=== PATIENT | male | born 1955 | race Caucasian/White ===

== ENCOUNTER → 2016-11-18 | Outpatient (CLI) | payer MEDICARE | LOC: RAD 08:50 | PROVIDERS: ATTEND Internal Medicine Cardiovascular Disease | DX: R91.8 Other nonspecific abnormal finding of lung field (principal); J93.83 Other pneumothorax | CPT/HCPCS: 71250 ==

== ENCOUNTER 2017-02-15 05:13 | Emergency (ER) | payer MEDICARE ==
[~2017-02-15] VITALS: Ht 175.3 cm; Wt 64.6 kg
[~2017-02-15 05:13] MED LIST: ESOM20CA PO
--- OUTSIDE RECORDS SUMMARY | 2017-02-15 05:18 | XMS REPORT | Continuity of Care Document ---
Author Author [facility] Address Unknown Phone Unavailable Support Name Relationship Address Phone CESAR DIGGS MD Caregiver [address] [place] [address] TUCKER AYALA Next Of Kin [address] [place] [address] Insurance Providers Payer Name Policy Number Subscriber Name Relationship Medicare A And B [id number] Casey Ayala 17 Self / Same As Patient Advance Directives Directive Response Recorded Date/Time Advanced Directives Unknown 07/11/16 2:06am Problems Active Problems Medical Problem Onset Date Status SVT (supraventricular tachycardia) Unknown Acute Medications Current Home Medications Medication Dose Units Route Directions Days/Qty Instructions Start Date Esomeprazole Magnesium 20 Mg 20 Mg ORAL Daily 07/11/16 Social History Query Response Start Date Stop Date Smoking Status Current every day smoker Hospital Discharge Instructions Current inpatient/outpatient. Discharge instructions are currently unavailable. Plan of Care Prescriptions Functional Status No functional status results. Allergies, Adverse Reactions, Alerts No known allergies. Immunizations No immunization records. Vital Signs Acute Vital Signs Vital Response Date/Time Temperature (Fahrenheit) 98 07/11/2016 7:21am Pulse 109 bpm 07/11/2016 7:21am Respirations 20 07/11/2016 7:21am Results Laboratory Results Test Name Result Units Flags Reference Collection Date/Time Result Date/ Time Comments White Blood Count 11.06 10^3uL H 4.0-11.0 07/11/2016 2:54am 07/11/2016 3 :03am Red Blood Count 4.69 10^6uL 4.50-5.50 07/11/2016 2:54am 07/11/2016 3: 03am Hemoglobin 16.4 g/dL 13.5-17.0 07/11/2016 2:54am 07/11/2016 3:03am Hematocrit 45.10 % 39.00-50.00 07/11/2016 2:54am 07/11/2016 3:03am Mean Corpuscular Volume 96 FL 80-100 07/11/2016 2:54am 07/11/2016 3: 03am Mean Corpuscular Hemoglobin 35.0 PG H 26.0-34.0 07/11/2016 2:54am 2015 3:03am Mean Corpuscular Hemoglobin Concent 36.4 g/dL 31.0-37.0 07/11/2016 2: 54am 07/11/2016 3:03am Red Cell Distribution Width 13.4 % 11.8-15.6 07/11/2016 2:542015 3:03am Platelet Count 174 10^3uL 150-450 07/11/2016 2:5407/11/2016 3:03am Mean Platelet Volume 10.3 FL H 6.0-9.5 07/11/2016 2:5407/11/2016 3: 03am Neutrophils (%) (Auto) 75 % H 51-67 07/11/2016 2:5407/11/2016 3:03am Lymphocytes (%) (Auto) 11 % L 20-46 07/11/2016 2:54am 07/11/2016 3:03am Monocytes (%) (Auto) 11 % 3-11 07/11/2016 2:5407/11/2016 3:03am Eosinophils (%) (Auto) 2 % 0-4 07/11/2016 2:5407/11/2016 3:03am Basophils (%) (Auto) 1 % 0-2 07/11/2016 2:5407/11/2016 3:03am Neutrophils # (Auto) 8.3 X10^3 07/11/2016 2:54am 07/11/2016 3:03am Lymphocytes # (Auto) 1.3 X10^3 07/11/2016 2:54am 07/11/2016 3:03am Monocytes # (Auto) 1.2 X10^3 07/11/2016 2:54am 07/11/2016 3:03am Eosinophils # (Auto) 0.2 10^3uL 07/11/2016 2:54am 07/11/2016 3:03am Basophils # (Auto) 0.1 10^3uL 07/11/2016 2:54am 07/11/2016 3:03am Sodium Level 143 mmol/L 135-150 07/11/2016 2:54am 07/11/2016 3:15am Potassium Level 3.0 mmol/L L 3.5-5.1 07/11/2016 2:54am 07/11/2016 3: 15am Chloride Level 99 mmol/L 98-108 07/11/2016 2:54am 07/11/2016 3:15am Carbon Dioxide Level 29 mmol/L 22-29 07/11/2016 2:54am 07/11/2016 3: 15am Anion Gap 17.1 MEQ/L H 3-15 07/11/2016 2:54am 07/11/2016 3:15am Blood Urea Nitrogen 3 mg/dL L 7-18 07/11/2016 2:54am 07/11/2016 3:15am Creatinine 0.65 mg/dL L 0.8-1.5 07/11/2016 2:54am 07/11/2016 3:15am BUN/Creatinine Ratio 5 L 10-20 07/11/2016 2:54am 07/11/2016 3:15am Estimat Glomerular Filtration Rate 150.6 07/11/2016 2:54am 2015 3:15am Estimated GFR (Non- 124.5 07/11/2016 2:54am 2015 3:15am Glucose Level 115 mg/dL H 70-110 07/11/2016 2:54am 07/11/2016 3:15am Calculated Osmolality 273 mosm/L L 280-300 07/11/2016 2:54am 07/11/2016 3:15am Calcium Level 8.5 mg/dL L 8.8-10.8 07/11/2016 2:54am 07/11/2016 3:15am Calcium/Ionized Calcium Ratio 3.6 mg/dL L 3.8-4.6 07/11/2016 2:54am 3:15am Total Bilirubin 1.3 mg/dL H 0.1-1.0 07/11/2016 2:54am 07/11/2016 3:15am Alkaline Phosphatase 84 U/L 38-126 07/11/2016 2:54am 07/11/2016 3:15am Aspartate Amino Transf (AST/SGOT) 80 U/L H 15-37 07/11/2016 2:54am 07/11 3:15am Alanine Aminotransferase (ALT/SGPT) 35 U/L 30-65 07/11/2016 2:54am 3:15am Total Creatine Kinase 82 U/L 55-170 07/11/2016 2:54am 07/11/2016 3: 12am Creatine Kinase MB 3.4 ng/mL 0.0-6.0 07/11/2016 2:54am 07/11/2016 3: 25am Troponin I 0.059 ng/mL 0.010-0.080 07/11/2016 2:54am 07/11/2016 3:25am EX-Hqo-H-Type Natriuretic Peptide 32735 pg/mL H 0-125 07/11/2016 2:54am 07/11/2016 3:25am <300 ng/mL - HF unlikely Age <50 years, NT-proBNP >450 pg/mL - HF Likely Age 50-75 yrs, NT-proBNP >900 pg/mL - HF Likely Age >75 yrs, NT-proBNP >1800 - HF likely Total Protein 7.6 g/dL 6.4-8.5 07/11/2016 2:54am 07/11/2016 3:15am Albumin 3.8 g/dL 3.4-5.0 07/11/2016 2:54am 07/11/2016 3:15am Albumin/Globulin Ratio 1.000 L 1.1-1.8 07/11/2016 2:54am 07/11/2016 3: 15am Thyroid Stimulating Hormone (TSH) 8.90 uIU/mL H 0.46-4.68 07/11/2016 2: 54am 07/11/2016 5:01am C-Reactive Protein 1.40 mg/dL H 0.0-0.9 07/11/2016 2:54am 07/11/2016 3: 15am Procedures No known history of procedures. Encounters Encounter Location Arrival/Admit Date Discharge/Depart Date Attending Provider Registered Clinic [facility] 07/11/16 7:15am CESAR DIGGS MD Departed Emergency Room [facility] 07/11/16 1:46am 07/11/16 7:24am CESAR DIGGS MD
[2017-02-15] MEDS ORDERED: POTASSIUM CHLORIDE (05:34)
[2017-02-15] MEDS ORDERED: FRSM40T PO (05:34)
[2017-02-15] MEDS ORDERED: MGX400T PO (05:34)
[2017-02-15] MEDS ORDERED: METO-270 PO (05:34)
[2017-02-15] MEDS ORDERED: KETOROLAC 30 MG/ML (TORADOL) 1 ML VIAL IV ONE (05:35)
[2017-02-15] MEDS ORDERED: SODIUM CHLORIDE FLUSH 10 ML SYR IV PRN (05:35)
[2017-02-15] MEDS ORDERED: ONDANSETRON 2 MG/ML (Z0FRAN) 2 ML VIAL IV ONE (05:35)
[2017-02-15] MEDS ORDERED: SODIUM CHLORIDE FLUSH 3 ML SYR IV PRN (05:35)
[2017-02-15] MEDS ORDERED: GI COCKTAIL 55 ML UDC PO ONE (05:40)
[2017-02-15 06:20] LABS: BASOPHILS % (AUTO) 1 % (0-2); EOSINOPHILS # (AUTO) 0.2 10^3uL; EOSINOPHILS % (AUTO) 2 % (0-4); LYMPHOCYTES # (AUTO) 1.3 X10^3; MEAN CORPUSCULAR HEMOGLOBIN 29.7 PG (26.0-34.0); MEAN CORPUSCULAR HGB CONC 33.7 g/dL (31.0-37.0); MEAN CORPUSCULAR VOLUME 88 FL (80-100); MEAN PLATELET VOLUME 9.3 FL (6.0-9.5); MONOCYTES # (AUTO) 1.1 X10^3; MONOCYTES % (AUTO) 10 % (3-11); NEUTROPHILS # (AUTO) 8.1 X10^3; NEUTROPHILS % (AUTO) 75 % (51-67); PLATELET COUNT 297 10^3uL (150-450); WHITE BLOOD COUNT 10.78 10^3uL (4.0-11.0)
[2017-02-15 06:23] LABS: BILIRUBIN,URINE Negative (Negative); CLARITY,URINE Clear; COLOR,URINE Yellow; GLUCOSE, URINE (UA) Negative (Negative); LEUKOCYTE ESTERASE ,URINE Negative (Negative); PH,URINE 6.5 (5.0 - 8.0)
[2017-02-15 06:31] LABS: URINE CENTRIFUGED VOLUME 12 mL
[2017-02-15 06:32] LABS: ALKALINE PHOSPHATASE 63 U/L (38-126); AMYLASE* 80 U/L (25-115); ANION GAP 14.1 MEQ/L (3-15); BUN/CREATININE RATIO 14 (10-20); CALCULATED IONIZED CALCIUM 3.8 mg/dL (3.8-4.6); CREATINE KINASE 70 U/L (55-170); LIPASE* 135 U/L (23-300); TOTAL PROTEIN 7.9 g/dL (6.4-8.5)
--- NOTE | 2017-02-15 07:03 | NUR ---
Nurse called Herminia Urbina [employer] professional service. Message left.
--- NOTE | 2017-02-15 07:07 | NUR ---
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 CL
--- NOTE | 2017-02-15 07:24 | Diagnostic Imaging Report ---
INDICATION: Abdominal pain COMPARISON STUDY: Chest from June the . FINDINGS: Upright view of the chest demonstrates chronic prominent markings in the right infrahilar region. The heart size and vascularity are normal. Cardiac pacemaker has been placed. No pleural effusion or pneumothorax is present. Supine and upright views of the abdomen demonstrate an oval density in the left lower quadrant most likely a pill. The bowel gas pattern is normal. Mild degenerative changes are present in the spine. IMPRESSION: 1. Chronic right infrahilar and interstitial markings. 2. There is a pill in the right lower quadrant. 3. Some calcifications overlie the 12th rib. These may be renal calculi. Dictated by: Dictated on workstation # [id number]
--- NOTE | 2017-02-15 07:34 | NUR ---
0700 PT AWAKENS SPONTANEOUSLY WHEN THIS RN GOES FOR INTRODUCTIONS. PT DENIES PAIN AT THIS TIME. CL
--- NOTE | 2017-02-15 08:31 | Diagnostic Imaging Report ---
INDICATION: Abdominal pain. TECHNIQUE: Gallbladder sonography was performed in the routine fashion. FINDINGS: The liver shows normal echogenicity with no focal lesions. The gallbladder shows multiple stones in the gallbladder neck. There does not appear to be significant gallbladder wall thickening. The common duct measures 5 mm. The pancreas is not well-seen due to overlying gas. The right kidney measures 9.7 cm in length. There is a cyst in the lateral portion of the right kidney measuring 2.8 x 2.6 x 2.5 cm. There is no ascites. IMPRESSION: Multiple gallstones are seen in the gallbladder neck with some sludge. No significant gallbladder wall thickening or biliary dilatation. Incidental cyst in the right kidney. Dictated by: Dictated on workstation # [id number]
[2017-02-15 08:45] VITALS: BP 124/82
== END 2017-02-15 08:31 | disposition home or self-care (01) ==
LOC: ED 05:15
DX: K80.70 Calculus of gallbladder and bile duct without cholecystitis without obstruction (principal)
CPT/HCPCS: 36415; 74022; 76705; 80053; 81003; 81015; 82150; 82274; 82550; 82553; 83690; 84484; 85025; 85610; 85730; 86140; 93005; 96374; 99285; J2405; 93010; 99284